=== PATIENT | female | born 1985 | race Caucasian/White ===

== ENCOUNTER 2021-04-06 13:31 | Emergency (ER) | payer OTHER, SELFPAY ==
[2021-04-06 15:03] VITALS: BP 135/86; PULSE 70; RESP 18; TEMP 36.7; O2SAT 100; BMI 29.6
[2021-04-06 17:02] LABS: COVID-19 Test Positive (Negative); IDNOW Serial# 9DD0AD1C
[2021-04-06 19:23] LABS: Basophils Percent Auto 0.3 % (0-2); Eosinophils Absolute Auto 0.1 X10*3/uL (0.0-0.4); Hematocrit 34.7 % (37.0-47.0); Hemoglobin 10.9 g/dl (12.0-16.0); Imm Gran Abs Auto 0.02 X10*3/uL (0.00-0.03); Imm Gran Pct Auto 0.3 % (0.0-0.4); Lymphocytes Percent Auto 44.5 % (20-40); MANUAL DIFF FLAG NO; Mean Corpuscular HGB Conc 31.4 g/dl (31.0-35.0); Mean Corpuscular Hemoglobin 23.7 pg (27.0-33.0); Mean Corpuscular Volume 75.4 fL (80.0-98.0); Mean Platelet Volume 9.1 fL (9.4-12.3); Monocytes Absolute Auto 0.5 X10*3/uL (0.1-1.2); Monocytes Percent Auto 7.5 % (2-11); Neutrophils Absolute Auto 3.2 x10*3/uL (2.0-8.3); Neutrophils Percent Auto 46.4 % (45-73); Platelet Count 300 X10*3/uL (160-400); Red Cell Distribution Width 14.1 % (11.0-16.0); White Blood Count 6.8 X10*3/uL (4.8-10.8)
[2021-04-06 19:38] LABS: Alanine Aminotransferase 29 U/L (0-31); Albumin Level 4.2 g/dL (3.5-5.0); Alkaline Phosphatase 65 U/L (39-117); Anion Gap 10 (12-20); Aspartate Amino Transferase 23 U/L (5-31); Bilirubin Total 0.3 mg/dL (0.0-1.0); Blood Urea Nitrogen 13 mg/dL (9-16); Calcium 9.5 mg/dL (8.4-10.2); Carbon Dioxide 28 mmol/L (22-29); Chloride 106 mmol/L (96-108); Creatinine Clr Calc Pharmacy 112.9; Estimated Glomerular Filt Rate > 60; Glucose Random 96 mg/dL (60-115); Lipase 24 U/L (8-78); Potassium 4.1 mmol/L (3.3-5.1); Sodium 140 mmol/L (135-145)
--- NOTE | 2021-04-06 19:52 | ED_ITS ---
HPI - Abdominal Pain General Chief Complaint: Abdominal Pain Stated Complaint: vomiting dizzy nausea abd pain Time Seen by Provider: 04/06/21 19:52 Source: patient Mode of arrival: ambulatory Limitations: no limitations History of Present Illness HPI narrative: 36 y/o female with recently diagnosed COVID-19 03/31 presents to the ER with epigastric abdominal pain, 1 episode of vomiting today and a few episodes of loose bowel movements the last few days. She also reports some generalized weakness, lightheadedness and dizzines. She reports earlier in the week when she was having fevers she was taking a lot of Motrin. She has a history of a gastric ulcer and was not thinking at the time. She reports the pain started after she was taking several doses of the Motrin without any food. She reports her epigastric pain is burning in nature and comes and goes. Her vomitus this morning had no blood. She has had no black or bloody bowel movements. She is no longer having any fevers but she continues to have body aches. She denies any shortness of breath or chest pain. MD elicited complaint: abdominal pain Pertinent past history: gastritis Onset (ago): day(s) Pain Consistency: intermittent Location: epigastric Severity: moderate Quality: aching and burning Radiation: none Migration to: no migration Exacerbating factors: eating and medication Relieving factors: nothing Context: history of similar episodes Associated symptoms: nausea and vomiting Related Data Patient : No Previous Rx's Medication Instructions Recorded omeprazole 40 mg capsule,delayed 40 mg PO DAILY #14 cap 04/06/21 release ondansetron 4 mg disintegrating 4 mg PO DAILY PRN #10 tab 04/06/21 tablet Allergies Allergy/AdvReac Type Severity Reaction Status Date / Time aspirin [ASA] Allergy Hives Verified 04/06/21 15:03 Review of Systems Review of Systems Constitutional: No Fever, No Chills ENT/Mouth: No sore throat, No Rhinorrhea, No Swallowing Difficulty Cardiovascular: No Chest Pain, No SOB, No Orthopnea Respiratory: + Cough, No Sputum, No Wheezing, No dyspnea Gastrointestinal: + Nausea, + Vomiting, + Diarrhea, + abdominal Pain, No Hematochezia, No Melena Genitourinary: No Dysuria, No Urinary Frequency, No Hematuria Musculoskeletal: No joint pain, No Myalgias Skin: No Skin Lesions, No rash Neuro: + Weakness, No Numbness, + Dizziness, + Headache Heme/Lymph: No Bruising, No Lymphadenopathy Physical Exam Vital Signs: Vital Signs: Last Vital Signs Temp 98.2 F 04/06/21 19:55 Pulse 67 04/06/21 19:55 Resp 16 04/06/21 19:55 BP 125/93 H 04/06/21 19:55 Pulse Ox 100 04/06/21 19:55 BMI result Body Mass Index 29.6 Appearance: Alert. Oriented X3. No acute distress. She appears nontoxic Eyes: Pupils equal, round and reactive to light. ENT: Pharynx normal. Neck: Normal inspection. Neck supple. CVS: Normal heart rate and rhythm. Pulses normal. Respiratory: No respiratory distress. Breath sounds normal. Abdomen: Soft with mild epigastric abdominal tenderness, no rebound or guarding. +BS x4 Skin: Skin warm and dry. Normal skin color. Normal skin turgor. No rashes. Extremities: No lower extremity edema. No calf swelling or tenderness. Neuro: Oriented X 3. No motor deficit. No sensory deficit. Course Course Course Narrative: 36-year-old female who was diagnosed with COVID 6 days ago presents the ER with epigastric pain, nausea, vomiting and some loose bowel movements. Vomit and diarrhea are nonbloody. She has a history of gastric ulcers is a been taking high doses of NSAID. Gastritis versus PUD most likely the cause of her epigastric pain. Will give a GI cocktail and start her on PPI for 2 weeks. Her vital signs are within normal limits and her lab work is reassuring. She appears well. She has been sipping on a smoothie while in the waiting room for the last 6 hours. Will reassess after GI cocktail and plan for discharge home with supportive care. Reevaluation(s) Reevaluation #1: Patient is feeling better she is stable for discharge home with PPI and p.r.n. Zofran. Advised to avoid NSAIDs, alcohol and spicy food. Patient agrees with plan and is stable for DC. MDM - Abdominal Pain Lab Data Result diagrams: 04/06/21 19:17 04/06/21 19:17 Labs: Lab Results 04/06/21 04/06/21 04/06/21 Range/Units 15:07 19:17 19:17 WBC 6.8 (4.8-10.8) X10*3/uL RBC 4.60 (4.20-5.50) X10*6/uL Hgb 10.9 L (12.0-16.0) g/dl Hct 34.7 L (37.0-47.0) % MCV 75.4 L (80.0-98.0) fL MCH 23.7 L (27.0-33.0) pg MCHC 31.4 (31.0-35.0) g/dl RDW 14.1 (11.0-16.0) % Plt Count 300 (160-400) X10*3/uL MPV 9.1 L (9.4-12.3) fL Immature Gran % (Auto) 0.3 (0.0-0.4) % Neut % (Auto) 46.4 (45-73) % Lymph % (Auto) 44.5 H (20-40) % Tillman % (Auto) 7.5 (2-11) % Eos % (Auto) 1.0 (0-4) % Baso % (Auto) 0.3 (0-2) % Lymph # (Auto) 3.0 (1.2-4.9) X10*3/uL Tillman # (Auto) 0.5 (0.1-1.2) X10*3/uL Eos # (Auto) 0.1 (0.0-0.4) X10*3/uL Baso # (Auto) 0.0 (0.0-0.2) X10*3/uL Abs Immat Gran (auto) 0.02 (0.00-0.03) X10*3/uL Absolute Neuts (auto) 3.2 (2.0-8.3) x10*3/uL Absolute Nucleated RBC 0.000 (0.0-0.012) X10*3/uL Nucleated RBC % (auto) 0.0 (0.0-0.2) /100WBC Sodium 140 (135-145) mmol/L Potassium 4.1 (3.3-5.1) mmol/L Chloride 106 (96-108) mmol/L Carbon Dioxide 28 (22-29) mmol/L Anion Gap 10 L (12-20) BUN 13 (9-16) mg/dL Creatinine 0.73 (0.5-1.4) mg/dL Estim Creat Clear Calc 112.9 Estimated GFR > 60 Random Glucose 96 (60-115) mg/dL Calcium 9.5 (8.4-10.2) mg/dL Total Bilirubin 0.3 (0.0-1.0) mg/dL AST 23 (5-31) U/L ALT 29 (0-31) U/L Alkaline Phosphatase 65 (39-117) U/L Total Protein 8.0 (6.5-8.0) g/dL Albumin 4.2 (3.5-5.0) g/dL Lipase 24 (8-78) U/L COVID-19 (EDUARDO) Positive A (Negative) COVID-19 Clin Com See Note Discharge Plan Discharge Clinical Impression: COVID-19, Gastritis Patient Disposition: Home, Self-Care Instructions: Covid-19 Viral Syndrome and Novel Coronavirus (ED) Hey/Ath, Gastritis (ED), Diet for Stomach Ulcers and Gastritis (ED) Additional Instructions: Avoid NSAIDs like ibuprofen, Aleve, Motrin and Advil.. It is okay to continue to take Tylenol as needed for body aches and pains as well as fevers. Stick to a bland diet, avoid acidic food. Take the prescribed anti acid once a day in the morning for the next 2 weeks. Take the prescribed nausea medication as needed for nausea and vomiting. Rest and stay hydrated. Follow-up with your doctor as needed. If you develop new or worsening symptoms call 911 or come back to the ER for further evaluation. Prescriptions: New omeprazole 40 mg capsule,delayed release(DR/EC) 40 mg PO DAILY Qty: 14 RF: 0 ondansetron 4 mg tablet,disintegrating 4 mg PO DAILY PRN (Reason: nausea and vomiting) Qty: 10 RF: 0 PMFSH Social History Social History Advance Directives: No Advance Directives Information Provided: Yes
[2021-04-06 19:55] VITALS: BP 125/93; PULSE 67; RESP 16; TEMP 36.8; O2SAT 100
[2021-04-06] MEDS: Ondansetron ODT 4 MG TAB.RAPDIS TRANSLINGU (20:42)
[2021-04-06] MEDS: PHENobarb/Hyoscy/Atropine/Scop 10 ML ELIXIR PO (20:42)
[2021-04-06] MEDS: Omeprazole 40 MG CAPSULE.DR PO (20:42)
[2021-04-06] MEDS: Lidocaine HCl Viscous 2 % 15 ML SOLUTION MUCOUS MEM (20:43)
[2021-04-06] MEDS: Magnesium Hydrox/Alum Hydrox 30 ML ORAL.SUSP PO (20:43)
[2021-04-06 20:46] VITALS: BP 134/87; PULSE 73; O2SAT 100
== END 2021-04-06 20:48 | disposition home or self-care (01) ==
PROVIDERS: Emergency Provider Internal Medicine
DX: U07.1 COVID-19 (principal); R10.9 Unspecified abdominal pain; K29.70 Gastritis, unspecified, without bleeding; Z79.899 Other long term (current) drug therapy
CPT/HCPCS: 36415; 80053; 83690; 85025; 87635; 99284